=== PATIENT | male | born 1995 | race Caucasian/White ===

== ENCOUNTER 2019-09-08 22:36 | Emergency (ER) | payer MEDICAID ==
[~2019-09-08] VITALS: Ht 182.9 cm; Wt 91.0 kg
[2019-09-09] MEDS ORDERED: HYDROCODONE/ACETAMINOPHEN 5/325MG TABLET PO ONE
[2019-09-09 01:42] VITALS: BP 151/94
== END 2019-09-09 01:51 | disposition home or self-care (01) ==
LOC: ER 22:36
DX: M25.552 Pain in left hip (principal)
CPT/HCPCS: 73502; 99283